=== PATIENT | female | born 1995 | race Hispanic/Latino ===

== ENCOUNTER 2017-07-17 17:41 | Emergency (ER) | payer OTHER ==
[2017-07-17] MEDS: ONDANSETRON 4MG/2ML VIAL (J2405) IV (21:30)
[2017-07-17] MEDS: NS 1,000 ML IV (21:30)
[2017-07-17 21:55] LABS: BASO % 0.2 % (0.0-1.0); HEMATOCRIT 43.7 % (36.0-47.0); IMMATURE GRANULOCYTE % 0.3 % (0-3.0); LYMPH # 0.4 10^3/uL (1.5-6.5); LYMPH % 3.7 % (24.0-44.0); MEAN CORPUSCULAR HGB CONC 34.3 g/dl (32.0-36.5); MEAN CORPUSCULAR VOLUME 84.5 fl (80.0-96.0); MONO # 0.3 10^3/uL (0.0-0.8); MONO % 2.6 % (0.0-5.0); NEUTROPHILS # 9.7 10^3/uL (1.8-7.7); NEUTROPHILS % 93.2 % (36.0-66.0); PLATELET COUNT, AUTOMATED 214 10^3/uL (150-450); RED BLOOD COUNT 5.17 10^6/uL (4.00-5.40); RED CELL DISTRIBUTION WIDTH 11.9 % (11.5-14.5); WHITE BLOOD COUNT 10.4 10^3/uL (4.0-10.0)
[2017-07-17 22:05] LABS: KETONE, URINE AUTO RFX 2+ mg/dL (NEGATIVE); LEUKOCYTE ESTERASE UR AUTO RFX NEGATIVE (NEGATIVE); MUCUS, URINE RFX SMALL (NEGATIVE); NITRITE, URINE AUTO RFX NEGATIVE (NEGATIVE); RBC, URINE AUTO RFX 1 /HPF (0-3); SPECIFIC GRAVITY UR AUTO RFX 1.026 (1.002-1.035); SQUAM EPITHELIAL CELL UR AURFX 2 /HPF (0-6); WBC, URINE AUTO RFX 1 /HPF (0-3)
[2017-07-17 22:09] LABS: CONTROL LINE HCG INT CTR LINE PRESENT; HCG, SERUM QUALITATIVE NEGATIVE (NEGATIVE)
[2017-07-17 22:17] LABS: ALBUMIN 4.2 GM/DL (3.2-5.2); ALBUMIN/GLOBULIN RATIO 1.14 (1.00-1.93); ALKALINE PHOSPHATASE 68 U/L (45-117); ALT/SGPT 17 U/L (12-78); ANION GAP 8 MEQ/L (8-16); AST/SGOT 18 U/L (7-37); BILIRUBIN,DIRECT 0.2 MG/DL (0.0-0.2); BILIRUBIN,TOTAL 0.7 MG/DL (0.2-1.0); BLOOD UREA NITROGEN 12 MG/DL (7-18); CALCIUM LEVEL 8.9 MG/DL (8.5-10.1); CARBON DIOXIDE LEVEL 27 MEQ/L (21-32); CHLORIDE LEVEL 105 MEQ/L (98-107); CREATININE FOR GFR 0.83 MG/DL (0.55-1.30); GLOMERULAR FILTRATION RATE > 60.0 (>60); GLUCOSE, FASTING 101 MG/DL (70-100); LIPASE 133 U/L (73-393); SODIUM LEVEL 140 MEQ/L (136-145); TOTAL PROTEIN 7.9 GM/DL (6.4-8.2)
== END 2017-07-17 23:00 | disposition home or self-care (01) ==
LOC: M ED 17:41
DX: K52.9 Noninfective gastroenteritis and colitis, unspecified (principal)
CPT/HCPCS: J2405

== ENCOUNTER 2018-03-21 01:39 | Inpatient (IN) | payer OTHER ==
[2018-03-21 03:00] LABS: APPEARANCE, URINE CLEAR (CLEAR); BACTERIA, URINE AUTO 1+ (NEGATIVE); BILIRUBIN, URINE AUTO NEGATIVE (NEGATIVE); BLOOD, URINE BLOOD 3+ (NEGATIVE); COLOR, URINE YELLOW (YELLOW); GLUCOSE, URINE (UA) AUTO NEGATIVE (NEGATIVE); KETONE, URINE AUTO NEGATIVE (NEGATIVE); LEUKOCYTE ESTERASE, URINE AUTO TRACE (NEGATIVE); MUCUS, URINE SMALL (NEGATIVE); NITRITE, URINE AUTO NEGATIVE (NEGATIVE); PROTEIN, URINE AUTO NEGATIVE (NEGATIVE); RBC, URINE AUTO TNTC /HPF (0-3); SPECIFIC GRAVITY URINE AUTO 1.008 (1.002-1.035); SQUAMOUS EPITHELIAL CELL UR AU 1 /HPF (0-6); UROBILINOGEN, URINE AUTO 0.2 mg/dL (0.0-2.0); WBC, URINE AUTO 17 /HPF (0-3)
[2018-03-21 03:28] LABS: HEMATOCRIT 33.7 % (36.0-47.0); HEMOGLOBIN 11.8 g/dl (12.0-15.5); MEAN CORPUSCULAR HEMOGLOBIN 30.7 pg (27.0-33.0); MEAN CORPUSCULAR VOLUME 87.8 fl (80.0-96.0); PLATELET COUNT, AUTOMATED 222 10^3/uL (150-450); RED BLOOD COUNT 3.84 10^6/uL (4.00-5.40); RED CELL DISTRIBUTION WIDTH 12.6 % (11.5-14.5); WHITE BLOOD COUNT 13.3 10^3/uL (4.0-10.0)
[2018-03-21] MEDS: cefTRIAXone SOD 1 GM in D5W MINI-BAG PLUS 50 ML IV (05:56)
[2018-03-21 06:15] LABS: ALBUMIN 2.9 GM/DL (3.2-5.2); ALBUMIN/GLOBULIN RATIO 0.76 (1.00-1.93); ALKALINE PHOSPHATASE 81 U/L (45-117); ALT/SGPT 26 U/L (12-78); ANION GAP 8 MEQ/L (8-16); AST/SGOT 25 U/L (7-37); BILIRUBIN,TOTAL 0.2 MG/DL (0.2-1.0); BLOOD UREA NITROGEN 6 MG/DL (7-18); CALCIUM LEVEL 8.3 MG/DL (8.5-10.1); CARBON DIOXIDE LEVEL 22 MEQ/L (21-32); CHLORIDE LEVEL 108 MEQ/L (98-107); CREATININE FOR GFR 0.62 MG/DL (0.55-1.30); GLOMERULAR FILTRATION RATE > 60.0 (>60); GLUCOSE, FASTING 98 MG/DL (70-100); POTASSIUM SERUM 3.8 MEQ/L (3.5-5.1); SODIUM LEVEL 138 MEQ/L (136-145); TOTAL PROTEIN 6.7 GM/DL (6.4-8.2)
[2018-03-21] MEDS ORDERED: KETOROLAC 30 MG/ML VIAL (J1885) IV (06:30)
[2018-03-21] MEDS: ACETAMINOPHEN 500 MG TAB PO ×3 (06:43→20:10)
[2018-03-22] MEDS: cefTRIAXone SOD 1 GM in D5W MINI-BAG PLUS 50 ML IV ×2 (05:35→15:00)
[2018-03-22 07:38] LABS: BASO % 0.1 % (0.0-1.0); EOS # 0.1 10^3/uL (0.0-0.50); EOS % 0.7 % (0.0-3.0); HEMATOCRIT 31.6 % (36.0-47.0); IMMATURE GRANULOCYTE % 0.7 % (0-3.0); LYMPH # 1.3 10^3/uL (1.5-6.5); LYMPH % 13.4 % (24.0-44.0); MEAN CORPUSCULAR HEMOGLOBIN 30.2 pg (27.0-33.0); MEAN CORPUSCULAR HGB CONC 34.8 g/dl (32.0-36.5); MEAN CORPUSCULAR VOLUME 86.8 fl (80.0-96.0); MONO # 0.7 10^3/uL (0.0-0.8); MONO % 7.1 % (0.0-5.0); NEUTROPHILS # 7.6 10^3/uL (1.8-7.7); PLATELET COUNT, AUTOMATED 216 10^3/uL (150-450); RED BLOOD COUNT 3.64 10^6/uL (4.00-5.40); RED CELL DISTRIBUTION WIDTH 12.6 % (11.5-14.5); WHITE BLOOD COUNT 9.8 10^3/uL (4.0-10.0)
[2018-03-22] MEDS: ACETAMINOPHEN 500 MG TAB PO (09:21)
== END 2018-03-22 16:45 | disposition home or self-care (01) | DRG 832 ==
LOC: M LDO 01:39 → M LDI 05:23 → M OBS 15:36
DX: O23.03 Infections of kidney in pregnancy, third trimester (principal); N13.6 Pyonephrosis; Z3A.29 29 weeks gestation of pregnancy

== ENCOUNTER 2018-06-07 00:58 | Inpatient (IN) | payer OTHER ==
[~2018-06-07] VITALS: Ht 147.3 cm; Wt 70.9 kg
[2018-06-07] VITALS (29 sets, daily range): BP systolic 114–154; BP diastolic 56–86
[~2018-06-07 00:58] MED LIST: MAPA500T2 PO; PRENTAB9 PO; ZOFR4TAB14 PO
[2018-06-07] MEDS ORDERED: LACTATED RINGER'S 1000 ML IV STA (02:23)
--- NOTE | 2018-06-07 02:55 | HPEPDOC ---
Obstetrical History & Physical General Date of Admission Jun 07, 2018 at 01:29 History of Present Illness Corine is a 22yo with SIUP at 40w3d who presents this evening with large g ush of clear fluid around midnight with continued leaking. She was getting ready for bed when it happened. She is starting to feel her ctx more now. No vaginal bleeding. Good movement. No f/c/n/v. 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 Past Medical History Medical History Recent diagnosis of psoriasis Surgical History: Appendectomy, [place] teeth Family History Significant Family History: No pertinent family hx Social History Marital Status: Family situation: Spouse/partner home Psychosocial History: No pertinent psych hx * Smoker: non-smoker Alcohol: Denies Drugs: denies Imunizations Tdap status: current Influenza Status: current Allergies Coded Allergies: No Known Allergies (Unverified , 03/21/18) Medications Scheduled Multivitamins/ ( 27-0.8 mg) 1 Tab Tab, 1 TAB PO DAILY Scheduled PRN Acetaminophen (Mapap) 500 Mg Tab, 1,000 MG PO Q6HP PRN for PAIN Physical Examination Physical Examination GENERAL: Alert and oriented times three. ABDOMEN: Gravid and non-tender to touch. FETUS: Is vertex (VTX) by sterile vaginal examination (SVE) per RN EXTREMITIES: No edema. Laboratory Data 24H LABS Laboratory Tests 2 06/07/18 01:39: Serology Scanned Report Hepatitis B Testing CBC/BMP H/H .6, plt 216 Pertinent Laboratoy Data Blood Type: A+ RBC Antibody Screen: Negative HIV: Negative Hepatitis B: Negative Hepatitis C: Unknown Rapid Plasma Reagin: Nonreactive Rubella: Immune Varicella: Nonreactive Chlamydia/Gonorrhea: Negative Group B Streptococcus: Negative Cystic Fibrosis: Negative Glucose Tolerance Test: 119 Anatomy Ultrasound Ultrasound Date: Jan 22, 2018 Placenta Location: Anterior Normal Anatomy: No (3mm liver calcification near azul hepatis (stable on follow up ultrasounds)) Placenta Previa: No Steroid Therapy Steroid Therapy: No Vaginal Examination Dilation: 4 cm Effacement: 90% Station: -1, 0 Cervical Consistency: Soft Cervical Position: Anterior Presentation: Cephalic presentation Assessment Heart Rate (FHR): 130 Variability: Moderate Accelerations: Positive Decelerations: None Tocometer Contractions: Yes Frequency: regular, every 3-7 min. Duration: greater than 60 seconds Strength: palpated as mild Assessment/Plan Assessment Crystal is a 22yo with SIUP at 40w3d with clear SROM at midnight tonight, starting to feel painful ctx. SCE per RN /-2 and cephalic. GBS negative. Cat I FHRT with ctx q5min. Vitals wnl, benign exam. course significant for: 3mm calcification noted on liver on ultrasound evaluated by PNC with negative TORCH titers and stable on follow up ultrasounds, recent diagnosis of psoriasis, on suppressive therapy for UTIs Plan Admit and orient. It Service Manager and consent. Diet: clear liquids Group B Streptococcus (GBS) negative Labs and intravenous (IV) per unit protocol. Counseled on Pitocin and augmentation of labor (IOL). Lactated Ringers (LR): Bolus 1000 mL, then at 125 mL/hr. Anticipate normal spontaneous delivery () Candidate for epidural if desired MD Alyssa Brunson Katrina D MD Jun 07, 2018 02:55
[2018-06-07 02:56] LABS: HEMATOCRIT 33.9 % (36.0-47.0); HEMOGLOBIN 11.5 g/dl (12.0-15.5); MEAN CORPUSCULAR HEMOGLOBIN 28.7 pg (27.0-33.0); MEAN CORPUSCULAR HGB CONC 33.9 g/dl (32.0-36.5); MEAN CORPUSCULAR VOLUME 84.5 fl (80.0-96.0); PLATELET COUNT, AUTOMATED 220 10^3/uL (150-450); RED BLOOD COUNT 4.01 10^6/uL (4.00-5.40); WHITE BLOOD COUNT 11.9 10^3/uL (4.0-10.0)
[2018-06-07] MEDS ORDERED: OXYTOCIN DRIP 30 UNITS in APPROPRIATE DILUENT 1 EA IV SCH ×2 (03:00→15:35)
[2018-06-07] MEDS ORDERED: BUTORPHANOL 2 MG/ML INJ (J0595) IV PRN (04:15)
[2018-06-07] MEDS ORDERED: PROMETHAZINE INJ 25 MG/ML VIAL (J2550) IV PRN (04:15)
[2018-06-07] MEDS: LR 1,000 ML IV SCH ×2 (07:25→12:23)
--- NOTE | 2018-06-07 08:32 | IPNPDOC ---
Text Note Date of Service The patient was seen on 06/07/18. NOTE SBAR from Dr Shah at 0730 Stadol/Phen now worn off Cx 6-/0 OK for epidural now, pt desires Sessions VS,[place], I+O VS, [place], I+O Laboratory Tests 06/07/18 01:45 Red Blood Count 4.01, Mean Corpuscular Volume 84.5, Mean Corpuscular Hemoglobin 28.7, Mean Corpuscular Hemoglobin Concent 33.9, Red Cell Distribution Width 13.2 Vital Signs Date Time Temp Pulse Resp B/P (MAP) Pulse Ox O2 Delivery O2 Flow Rate FiO2 06/07/18 04:22 18 I&O- Last 24 Hours up to 6 AM 06/07/18 06:00 Intake Total 1000 ml Balance 1000 ml SESSIONS,KOBE Minor MD Jun 07, 2018 08:32
[2018-06-07] MEDS ORDERED: FENTANYL 2MCG/ML ROPIVACAINE 0.2% IN 0.9% NACL 100ML IVBAG As Ordered ONE (08:57)
[2018-06-07] MEDS ORDERED: FENTANYL/ROPIVACAINE/NACL BAG 100 ML EPIDURAL SCH (10:30)
[2018-06-07] MEDS ORDERED: ONDANSETRON 4MG/2ML VIAL (J2405) IV PRN (10:30)
[2018-06-07] MEDS ORDERED: NALOXONE INJ 0.4 MG/1 ML VIAL (J2310) IV PRN (10:30)
[2018-06-07] MEDS ORDERED: EPIDURAL COMMENT XX SCH (10:30)
[2018-06-07] MEDS ORDERED: diphenhydrAMINE INJ 50MG/ML VIAL (J1200) IV PRN (10:30)
[2018-06-07] MEDS ORDERED: REFRIGERATOR IV KEYS XX PRN (10:30)
[2018-06-07] MEDS ORDERED: LACTATED RINGER'S 1000 ML IV PRN (10:30)
[2018-06-07] MEDS ORDERED: ePHEDrine SULFATE 25 MG/5 ML(5MG/ML) SYRINGE IV PRN (10:30)
[2018-06-07] MEDS ORDERED: EPIDURAL/PCA KEYS XX PRN (10:30)
--- NOTE | 2018-06-07 12:10 | IPNPDOC ---
Text Note Date of Service The patient was seen on 06/07/18. NOTE after lamb reported to be 9 cm per RN FHT Cat 1 Cx AL/100/+1 Peanut ball, plan on recheck in 60-90 min Sessions MD WARD,[place], I+O VSCortez I+O Laboratory Tests 06/07/18 01:45 Red Blood Count 4.01, Mean Corpuscular Volume 84.5, Mean Corpuscular Hemoglobin 28.7, Mean Corpuscular Hemoglobin Concent 33.9, Red Cell Distribution Width 13.2 Vital Signs Date Time Temp Pulse Resp B/P (MAP) Pulse Ox O2 Delivery O2 Flow Rate FiO2 06/07/18 11:17 91 126/62 (83) 06/07/18 04:22 18 I&O- Last 24 Hours up to 6 AM 06/07/18 06:00 Intake Total 1000 ml Balance 1000 ml SESSIONS,KOBE Minor MD Jun 07, 2018 12:10
[2018-06-07] MEDS ORDERED: AMPICILLIN SOD/SULBACTAM SOD 3 GM in D5W MINI-BAG PLUS 100 ML IV SCH (14:00)
[2018-06-07] MEDS ORDERED: UNASYN 3 GM VIAL As Ordered ONE (14:06)
[2018-06-07] MEDS ORDERED: DIBUCAINE 1% OINTMENT 30GM TOP PRN (15:45)
[2018-06-07] MEDS ORDERED: MEASLES,MUMPS,RUBELLA VACCINE INJ (MMR-II) (90707) SC SCH (15:45)
[2018-06-07] MEDS ORDERED: RHOGAM 300 MCG (1500 IU) INJ (J2790) IM SCH (15:45)
--- NOTE | 2018-06-07 15:57 | DNPDOC ---
[facility] Delivery Note Delivery Note DATE OF DELIVERY: [id number] PREDELIVERY DIAGNOSIS: 40 3/7 weeks' gestation and labor. POST DELIVERY DIAGNOSIS: Delivered. PROCEDURE: Spontaneous vaginal delivery CPAS: Dr. Hampton ANESTHESIA: epidural ESTIMATED BLOOD LOSS: 300 mL. FINDINGS: 6 pound 8 ounce female , Score 8/9 DELIVERY SUMMARY: Intraamniotic infection with fever and tachycardia just before started pushing, Tm is 102.1, received 1 dose Unasyn 3 gm. Great effort. No signif delay of the vtx or ant/post shoulder, SEAMUS to LOT. to abdom in good shape. Cord C/C by FOB. Cord blood. Placenta intact. Fundal massage, firm, pit going 999. 1st degr lac repaired with 3-0 vicryl, mostly a vaginal tear, very little perineal involvement. Good cosmesis/hemostasis. KOBE George MD, MD Jun 07, 2018 15:57
[2018-06-07] MEDS: IBUPROFEN 800 MG TAB PO PRN (19:52)
[2018-06-07] MEDS: DOCUSATE SODIUM 100 MG CAP PO SCH (19:52)
[2018-06-08] MEDS: ACETAMINOPHEN TAB 650MG DOSE (2X325MG) PO PRN (02:44)
[2018-06-08 06:28] VITALS: BP 110/54
--- NOTE | 2018-06-08 07:02 | IPNPDOC ---
Progress Note Date of Service: Jun 08, 2018 Progress Note Corine is a 22 yo G1 now P1 who underwent an uncomplicated on 07Jun2018 after being admitted for active labor. She developed chorioamnionitis intrapartum and received Unasyn. Her baby is in the NICU being monitored for signs of infection. Corine reports feeling well this AM and denies any complaints. She is ambulating, voiding, tolerating a regular diet, and has minimal lochia. Vitals - VSS, afebrile, normotensive, non tachycardic General - AAOX3, laying in bed, NAD Abdomen - Fundus firm at U-2. No fundal tenderness. Extremities - No edema UO - appropriate. Corine is doing well and is making an appropriate recovery. Continue to encourage ambulation and . Continue regular diet. Continue routine care. Anticipate discharge home or to boarder tomorrow. Amelia Prado DO VS, I&O, 24H, Fishbone Vital Signs/I&O Vital Signs Date Time Temp Pulse Resp B/P (MAP) Pulse Ox O2 Delivery O2 Flow Rate FiO2 06/08/18 06:28 98.7 72 16 110/54 (72) I&O- Last 24 Hours up to 6 AM 06/08/18 06:00 Intake Total 1600 ml Output Total 600 ml Balance 1000 ml AMELIA PRADO DO Jun 08, 2018 07:02
[2018-06-08] MEDS: DOCUSATE SODIUM 100 MG CAP PO SCH ×2 (07:48→20:27)
[2018-06-08] MEDS: PRENATAL VITAMINS CHEWABLE TABLET PO SCH (07:48)
[2018-06-08] MEDS: IBUPROFEN 800 MG TAB PO PRN ×2 (07:49→20:28)
[2018-06-09 06:34] VITALS: BP 133/72
[2018-06-09 06:50] VITALS: BP 150/86
[2018-06-09] MEDS: PRENATAL VITAMINS CHEWABLE TABLET PO SCH (07:43)
[2018-06-09] MEDS: ACETAMINOPHEN TAB 650MG DOSE (2X325MG) PO PRN (07:43)
[2018-06-09] MEDS: DOCUSATE SODIUM 100 MG CAP PO SCH (07:43)
[2018-06-09] MEDS ORDERED: NUPE1OIN2 TOP (08:06)
[2018-06-09] MEDS ORDERED: COLA100C5 PO (08:06)
[2018-06-09] MEDS ORDERED: MOTR200T44 PO (08:06)
--- NOTE | 2018-06-11 16:23 | DSES ---
DATE OF ADMISSION: 06/07/2018 DATE OF DISCHARGE: 06/09/2018 22-year-old 1 now para 1 admitted at 40 and 3 weeks of gestation with spontaneous rupture of membranes, spontaneous vaginal of delivery female, 6 pounds 8 ounces. score of 8 and 9 and 1 and 5 minutes respectively. Her admitting hemoglobin 11.5, hematocrit 33.9 and platelets were 220. Her vital signs on discharge blood pressure 150/86 respirations are 16, pulse is 80, temperature is 99.4. We discussed phlebitis, cystitis, mastitis, endometritis, cellulitis, diet, exercise pain management, perineal, breast and wound care. Medications were dispensed at discharge. The patient has a 6-week checkup with Dr. Mau Caballero or Dr. Shah.
== END 2018-06-09 11:00 | disposition home or self-care (01) | DRG 805 ==
LOC: M LDO 00:58 → M LDI 01:29 → M OBS 17:23
PROVIDERS: ADMIT Obstetrics & Gynecology; ATTEND Obstetrics & Gynecology
PROC: 10E0XZZ Delivery of Products of Conception, External Approach (ICD-10-PCS; principal; 2018-06-07)
PROC: 0HQ9XZZ Repair Perineum Skin, External Approach (ICD-10-PCS; 2018-06-07)
DX: O48.0 Post-term pregnancy (principal); Z37.0 Single live birth; O41.1230 Chorioamnionitis, third trimester, not applicable or unspecified; O70.0 First degree perineal laceration during delivery; Z3A.40 40 weeks gestation of pregnancy; O76 Abnormality in fetal heart rate and rhythm complicating labor and delivery